=== PATIENT | male | born 1960 | race Caucasian/White ===

== ENCOUNTER 2024-01-02 10:16 | Outpatient (AMB) | payer MEDICARE, BC, SELFPAY ==
--- NOTE | 2024-01-02 10:29 | PD.ORTHCLVIS ---
Vital signs 01/02/24 10:32 Height 1.96 m Height Method Stated Weight 118.841 kg Weight Measurement Method Standing Scale BMI 30.9 BP 132/64 H Blood Pressure Source Automatic Cuff Blood Pressure Location Right Upper Arm Position Sitting Respiration 19 Pulse 77 Pulse Source Monitor Temp 98.2 F Temp Source Temporal Artery Scan Pulse Oximetry (%) 95 Oxygen Delivery Method Room Air Med/Allergies Allergies & Medications Allergies iodine Allergy (Severe, Verified 01/02/24 10:35) Anaphylaxis Penicillins Allergy (Severe, Verified 01/02/24 10:35) Anaphylaxis shellfish derived Allergy (Severe, Verified 01/02/24 10:35) Anaphylaxis Iodinated Contrast Media Allergy (Verified 01/02/24 10:35) Medication Reconciliation metformin 500 mg tablet 500 mg PO BID 02/04/18 [History Confirmed 01/02/24] alprazolam 0.25 mg tablet 0.25 mg PO Q8H PRN Anxiety 04/01/19 [History Confirmed 01/02/24] aspirin 81 mg chewable tablet 81 mg PO QDAY 04/01/19 [History Confirmed 01/02/24] buspirone 10 mg tablet 30 mg PO BID 04/01/19 [History Confirmed 01/02/24] lisinopril 20 mg tablet 20 mg PO QDAY 04/01/19 [History Confirmed 01/02/24] nebivolol 5 mg tablet (Bystolic) 5 mg PO QDAY 04/01/19 [History Confirmed 01/02/24] acetaminophen 500 mg tablet 500 mg PO Q6H PRN pain 05/21/21 [History Confirmed 01/02/24] docusate sodium 100 mg tablet 100 mg PO BID 05/21/21 [History Confirmed 01/02/24] hydrocodone 5 mg-acetaminophen 325 mg tablet 1 tab PO Q8H PRN Pain (Scale Score 1-3) 05/21/21 [History Confirmed 01/02/24] naproxen 500 mg tablet 500 mg PO BID PRN Pain 05/21/21 [History Confirmed 01/02/24] nebivolol 5 mg tablet 5 mg PO QDAY 05/21/21 [History Confirmed 01/02/24] lidocaine 4 % topical patch 1 patch topical QDAY PRN pain #15 ea 11/16/21 [Rx Confirmed 01/02/24] methocarbamol 750 mg tablet 750 mg PO Q8H PRN muscle spasm #30 tabs 11/16/21 [Rx Confirmed 01/02/24] acetaminophen 325 mg tablet (Tylenol) 325 mg PO QID PRN 12/05/23 [History Confirmed 01/02/24] naproxen 500 mg tablet 500 mg PO BID 12/05/23 [History Confirmed 01/02/24] diclofenac sodium 1 % topical gel 4 g topical QID #100 grams 01/02/24 [Rx] Subjective Visit Visit for: follow up visit and x-rays Immunization / Flu Flu Vaccine in the Last 12 Months: No Flu Vaccine Exclusion Criteria: No Exclusion Criteria History of Present Illness Chief complaint: F/U XRAYS Patient is a pleasant 63-year-old male with chromosome abnormalities as well as multiple medical problems including cirrhosis diabetes seizure PTSD and severe anxiety presents today for right lower extremity pain. He has pain in his back hip and knee. He has seen [facility] before who Told him he was too at risk to get surgery. He has had multiple medical issues in the past. He is also on blood thinners and has both RA and OA According to him Pain Pain level (0-10): 7 Pain duration: ALL DAY Pain location: groin and outside (lateral) Pain quality: sharp, dull and aching Pain timing: increases with activity Ambulatory data Ambulatory device: cane Treatments Improvement with previous injections: No Improvement with PT: No Improvement with NSAIDS: n/a Review of Systems Review of Systems: All systems negative unless otherwise noted in HPI. Exam Exam Patient is in no acute distress and is cooperative with the examination today. Breathing is nonlabored. In no respiratory distress. Patient has no paraspinal tenderness. Spinal deformity [cannot] be appreciated. The gait of the patient is [nonantalgic] Bilateral extremities were evaluated and demonstrates sensation intact to light touch. Palpable pedal pulses are present. No significant edema is present. Bilateral knees were examined and the patient has full strength and range of motion.. The left hip was examined. Patient was able to flex to 90 degrees, adduct to 30 degrees, abduct to 40 degrees, internally rotate to 20 degrees, and externally rotate to 20 degrees. Patient has a negative logroll. Stinchfield is negative. The patient is nontender diffusely to touch. The right hip was examined. Patient was able to flex to [90] degrees, adduct to [30] degrees, abduct to [40] degrees, internally rotate to 0 degrees, and externally rotate to [20] degrees. Patient has aPositivelogroll. The stinchfield is [negative]. I was able to review some very old imaging from [facility] imaging. He does have right hip arthritis. It is of significant severity Assessment and Plan Problem List (1) Arthritis of right hip: Status: Acute Plan: Patient is a 63-year-old male with multiple medical issues including A-fib, cirrhosis, diabetes, PTSD, XYY syndrome, and severe spinal stenosis and fibromyalgia with entire right lower extremity pain. I will start getting by getting weightbearing x-rays. We will likely continue with conservative treatment as he is not a candidate for surgery. He wants just topical anti-inflammatories for now. He will call us should they want any cortisone injection. We discussed that he is at high risk for surgery given his fibromyalgia, and possibly his heart history. We will start just with topical anti-inflammatories and injections as needed. (2) Spinal stenosis: Status: Acute Office Procedures GNS Level of Care Nursing/Assessment Patient Status: Established Patient Nursing Assessment/Reassesment: Medication Reconciliation, Update PMH in EMR and Vital Signs Coordination of Care: Complex Care and Chronic Disease 1-5, Education Complex Pt/Fam, Consent,records obtained, informed consent, Results/Orders obtained and Staff clarify orders Established Patient Charge Established Patient Point Assignment: 95 Established Patient Point Charge: EP Level 3 (80-115) Past Medical History Past Medical History Have you ever been diagnosed with any of the following: Neurological Problems Seizures: No Cardiology Problems Myocardial Infarction: Yes Angina: Yes Hypercholesterolemia: Yes Congestive Heart Failure: Yes Hypertension: Yes Respiratory Problems Chronic Obstructive Pulmonary Disease (COPD): No Asthma: Yes Smoking: No Tobacco Use: Yes Stomache/Intestinal Problems Hepatitis: No Hiatal Hernia: Yes Genital/Urinary Problems Renal Disease: No Inguinal Hernia: Yes Musculoskeletal Problems Arthritis: Yes Rheumatoid Arthritis: Yes Endocrine Problems Diabetes Mellitus Type 1: No Diabetes Mellitus Type 2: Yes Psychologic Problems Depression: Yes Anxiety: Yes Post Traumatic Stress Disorder: Yes Other Problems Hospitalization: Yes Shingles: No Falls: No Blood Transfusions: No Anesthesia Reactions: Yes Chemotherapy: No Radiation Therapy: No MRSA: No Chicken Pox: Yes Measles: Yes Cancer: Yes
[2024-01-02 10:32] VITALS: BP 132/64; PULSE 77; RESP 19; TEMP 36.8; O2SAT 95; BMI 30.9
== END 2024-01-02 10:41 | disposition home or self-care (01) ==
LOC: HODSRG 10:16
PROVIDERS: PCP Family Medicine; Referring Provider Family Medicine; Supervising Provider Orthopaedic Surgery Adult Reconstructive Orthopaedic Surgery; Visit Provider Orthopaedic Surgery Adult Reconstructive Orthopaedic Surgery
DX: M16.11 Unilateral primary osteoarthritis, right hip (principal); M48.00 Spinal stenosis, site unspecified; I48.91 Unspecified atrial fibrillation; K74.60 Unspecified cirrhosis of liver; E11.9 Type 2 diabetes mellitus without complications; Q98.5 Karyotype 47, XYY; M79.7 Fibromyalgia; E78.00 Pure hypercholesterolemia, unspecified; I11.0 Hypertensive heart disease with heart failure; I50.9 Heart failure, unspecified; F43.10 Post-traumatic stress disorder, unspecified
CPT/HCPCS: 99213; G0463

== ENCOUNTER → 2024-02-05 | Outpatient (CLI) | payer MEDICARE, BC, SELFPAY ==
--- NOTE | 2024-02-05 07:30 | XR_ITS ---
Examination: MRI lumbar spine without contrast Date and time of exam: February 05, 2024 0727 hrs. Comparison September 19, 2021 Indications: Low back pain radiating down both legs numbness and paresthesias in both legs difficulty walking 10 years, worse the last 1.5 year Technique: Multiple MRI axial and sagittal sections lumbar spine. Sagittal T2-weighted images, TR 3500, TE 118 T1 weighted transverse sections, TR 688 T8.5, T2-weighted sagittal sections T1 weighted sagittal sections TR 621, TE 30 T2 axial sections, TR 4, 190, TE 84. Findings: [employer] film lumbar levoscoliosis 10 degrees Minimal anterolisthesis L4 on L3 Moderate to advanced disc narrowing L3-L4 No lumbar fracture Moderate lumbar spondylosis Adequate marrow signal lumbar vertebral bodies Diffuse lumbar disc desiccation L5-S1 3 mm central disc bulge L4-L5 moderate overall spinal stenosis, 6 mm central lumbar disc bulge with 9 mm right foraminal disc bulge producing moderate L4 right ganglionic compression L3-L4 severe overall spinal stenosis, 9 mm central lumbar disc bulge, facet arthropathy and thickening of ligamentum flavum L2-L3 no disc protrusion L1-L2 no disc protrusion Impression: Moderate to advanced degenerative disc disease L3-L4 L5-S1 3 mm central lumbar disc bulge L4-L5 moderate overall spinal stenosis including 6 mm central and 9 mm right foraminal disc bulge producing moderate right L4 ganglionic compression L3-L4 severe overall spinal stenosis, including 9 mm central lumbar disc bulge
== END | disposition home or self-care (01) ==
PROVIDERS: PCP Family Medicine; Referring Provider Family Medicine; Visit Provider Family Medicine
DX: M51.379 Other intervertebral disc degeneration, lumbosacral region without mention of lumbar back pain or lower extremity pain (principal); M51.369 Other intervertebral disc degeneration, lumbar region without mention of lumbar back pain or lower extremity pain; M48.061 Spinal stenosis, lumbar region without neurogenic claudication; G95.20 Unspecified cord compression
CPT/HCPCS: 72148